=== PATIENT | female | born 1995 | race American Indian/Alaskan Native ===

== ENCOUNTER 2017-07-05 13:26 | Emergency (ER) | payer OTHER ==
[2017-07-05 14:42] LABS: Hematocrit 32.9 % (30.3-42.9); Hemoglobin 10.7 gm/dl (10.1-14.3); Mean Corpuscular HGB Conc 32 % (30-34); Mean Corpuscular Hemoglobin 29 pg (28-32); Mean Corpuscular Volume 88 fl (79-97); Platelet Count 192 K/mm3 (140-440); Red Blood Count 3.74 M/mm3 (3.65-5.03); Red Cell Distribution Width 14.8 % (13.2-15.2); White Blood Count 3.7 K/mm3 (4.5-11.0)
[2017-07-05 14:51] LABS: Bacteria,Urine 3+ /HPF (Negative); Bilirubin,Urine NEG (Negative); Blood,Urine NEG (Negative); Ketones,Urine NEG (Negative); Leukocyte Esterase,Urine NEG (Negative); Mucus,Urine FEW /HPF; Nitrite,Urine POS (Negative); Protein,Urine <15 mg/dL mg/dL (Negative)
[2017-07-05 14:55] LABS: Alanine Aminotransferase 40 units/L (7-56); Albumin 3.2 g/dL (3.9-5); Albumin/Globulin Ratio 1.3 %; Alkaline Phosphatase 93 units/L (35-129); Anion Gap 16 mmol/L; BUN/Creatinine Ratio 36.66; Blood Urea Nitrogen 11 mg/dL (7-17); Calcium 8.8 mg/dL (8.4-10.2); Carbon Dioxide 24 mmol/L (22-30); Chloride 106.4 mmol/L (98-107); Glucose 92 mg/dL (65-100); Potassium 3.4 mmol/L (3.6-5.0); Sodium 143 mmol/L (137-145); Total Protein 5.7 g/dL (6.3-8.2)
[2017-07-05 15:21] LABS: Lipase 21 units/L (13-60)
[2017-07-05 16:20] LABS: Basophils % (Manual) 0 % (0.0-1.8); Blastocytes % (Manual) 0 %
[2017-07-05 16:25] LABS: Anisocytosis 1+; Ovalocytes 1+
[2017-07-05 16:26] LABS: Elliptocytes Rare; Large Platelets 1+
[2017-07-05 16:27] LABS: Diff Status Complete; Platelet Estimate Consistent w Auto
[2017-07-06] MEDS ORDERED: TYLENOL PO ONE (01:18)
[2017-07-06] MEDS ORDERED: TYLENOL ONE (01:23)
[2017-07-06] MEDS ORDERED: MORPHINE IV ONE (08:53)
--- NOTE | 2017-07-06 09:03 | Emergency Department Report ---
HPI - General Chief Complaint: Abdominal Pain Time Seen by Provider: 07/06/17 08:34 - HPI HPI: This is a 22-year-old female presents to the emergency department from home with a complaint of a 4 day history of lower abdominal discomfort. She denies any nausea, vomiting, fever, back pain, dysuria. However for the past 2 days the patient has been having some vaginal discharge. Patient says that she has a history of some devious STD. She did not take anything for her symptoms progress presentation. She does not have a primary care physician but [facility]. She denies any other past medical history. No recent travel or sick contacts at home. ED Past Medical Hx - Past Medical History Previous Medical History?: Yes Additional medical history: N/V excessively, elevated heart rate - Surgical History Past Surgical History?: No - Social History Smoking Status: Current Every Day Smoker Substance Use Type: Marijuana - Medications Home Medications: Home Medications Medication Instructions Recorded Confirmed Last Taken Type Dicyclomine [Bentyl] 10 mg PO QID PRN #20 capsule 08/17/16 Unknown Rx Famotidine [Pepcid] 20 mg PO QDAY #20 tablet 08/17/16 Unknown Rx Ondansetron [Zofran Odt] 4 mg PO QID PRN #20 tab.rapdis 08/17/16 Unknown Rx Metoclopramide [Reglan TAB] 10 mg PO TID PRN #30 tab 12/24/16 Unknown Rx Ondansetron [Zofran Odt] 4 mg PO Q8HR PRN #30 tab.rapdis 12/24/16 Unknown Rx traMADol [Ultram 50 MG tab] 50 mg PO Q6HR PRN #8 tablet 07/06/17 Unknown Rx ED Review of Systems ROS: Stated complaint: ABDOMINAL PAIN Other details as noted in HPI Comment: All other systems reviewed and negative Constitutional: denies: chills, fever Eyes: denies: eye pain, eye discharge, vision change ENT: denies: ear pain, throat pain Respiratory: denies: cough, shortness of breath, wheezing Cardiovascular: denies: chest pain, palpitations Gastrointestinal: abdominal pain. denies: nausea, vomiting Genitourinary: discharge. denies: dysuria Musculoskeletal: denies: back pain, joint swelling, arthralgia Skin: denies: rash, lesions Neurological: denies: headache, weakness, paresthesias Physical Exam - Physical Exam Vital Signs: Vital Signs 07/05/17 07/05/17 07/06/17 13:30 20:06 08:20 Temperature 98.4 F 98.1 F 98.3 F Pulse Rate 103 H 103 H 97 H Respiratory 16 18 22 Rate Blood Pressure 135/69 139/65 Blood Pressure 122/77 [Right] O2 Sat by Pulse 97 100 100 Oximetry 07/06/17 08:28 Temperature Pulse Rate Respiratory 22 Rate Blood Pressure Blood Pressure [Right] O2 Sat by Pulse 100 Oximetry Physical Exam: GENERAL: The patient is well-developed well-nourished. HENT: Normocephalic. Atraumatic. Patient has moist mucous membranes. EYES: Extraocular motions are intact. Pupils equal reactive to light bilaterally. NECK: Supple. Trachea is midline. CHEST/LUNGS: Clear to auscultation. There is no respiratory distress noted. HEART/CARDIOVASCULAR: Regular. There is mild tachycardia. There is no gallop rub or murmur. ABDOMEN: Abdomen is soft. There is mild tenderness to palpation to the lower abdomen. No guarding or rebound tenderness. Patient has normal bowel sounds. There is no abdominal distention. SKIN: Skin is warm and dry. NEURO: The patient is awake, alert, and oriented. The patient is cooperative. The patient has no focal neurologic deficits. The patient has normal speech. MUSCULOSKELETAL: There is no tenderness or deformity. There is no limitation range of motion. There is no evidence of acute injury. : There is a small amount of thick white discharge seen in the vaginal vault. No obvious vaginal or labial lesions. ED Course Vital Signs 07/05/17 07/05/17 07/06/17 13:30 20:06 08:20 Temperature 98.4 F 98.1 F 98.3 F Pulse Rate 103 H 103 H 97 H Respiratory 16 18 22 Rate Blood Pressure 135/69 139/65 Blood Pressure 122/77 [Right] O2 Sat by Pulse 97 100 100 Oximetry 07/06/17 08:28 Temperature Pulse Rate Respiratory 22 Rate Blood Pressure Blood Pressure [Right] O2 Sat by Pulse 100 Oximetry ED Medical Decision Making - Lab Data Result diagrams: 07/05/17 14:09 07/05/17 14:09 - Radiology Data Radiology results: report reviewed CT SCAN OF THE ABDOMEN AND PELVIS WITH CONTRAST: HISTORY: Abdominal pain. TECHNIQUE: Helical CT in 1.25mm intervals following IV contrast. Sagittal and coronal reconstructions. FINDINGS: The liver is normal in size and is without focal defect. No gallstones or biliary dilatation are noted. Mild periportal edema is suggested. The spleen and pancreas demonstrate a normal size and attenuation with no evidence of abnormal mass. The kidneys are normal in size and position with no evidence of hydronephrosis or mass. The adrenal glands are normal. There is no intestinal obstruction or ascites. Normal appendix. The abdominal aorta is normal. A right ovarian cyst is suspected measuring 2.5 cm. The left ovary is unremarkable. There is small pelvic ascites. There is no evidence of any abnormal masses or fluid collections within the pelvis. No adenopathy is identified. The bladder is normal. IMPRESSION: 2.5 cm right ovarian cyst. Small pelvic ascites. No acute inflammatory process is appreciated. - Medical Decision Making 22-year-old female presents to the emergency department with some lower abdominal pain and more recently some vaginal discharge. Wet prep did not show any signs of DVT or trichomoniasis. Gonorrhea and chlamydia sent but will not result for 2-[address] of the abdomen and pelvis shows a ovarian cyst. Labs are grossly unremarkable. No urinary tract infection and the patient is not . Vital signs stable including being afebrile. She will follow up with primary care and [facility] will return to the ER with any worsening of her symptoms or any acute distress. - Differential Diagnosis colitis, diverticulitis, , UTI, fibroids, STD Critical Care Time: No Critical care attestation.: If time is entered above; I have spent that time in minutes in the direct care of this critically ill patient, excluding procedure time. ED Disposition Clinical Impression: Abdominal pain Qualifiers: Abdominal location: lower abdomen, unspecified Qualified Code(s): R10.30 - Lower abdominal pain, unspecified Ovarian cyst Qualifiers: Laterality: right Qualified Code(s): N83.201 - Unspecified ovarian cyst, right side Disposition: TO HOME OR SELFCARE Is pt being admited?: No Condition: Stable Instructions: Ovarian Cyst (ED), Abdominal Pain (ED) Additional Instructions: Please follow up with a primary care doctor in the next few days. Please follow -up with your [facility]. Return to the emergency Department with any worsening of your symptoms or any acute distress. You have been prescribed a medication that is sedating and therefore should not be taken prior to driving, working, and responsible for children and in no way should be mixed with alcohol of any quantity. Prescriptions: traMADol [Ultram 50 MG tab] 50 mg PO Q6HR PRN #8 tablet PRN Reason: Pain Referrals: PRIMARY CARE, [Primary Care Provider] - 3-5 Days Time of Disposition: 11:50
[2017-07-06] MEDS ORDERED: NACL ONE (09:13)
--- NOTE | 2017-07-06 10:28 | Cat Scan Report ---
CT SCAN OF THE ABDOMEN AND PELVIS WITH CONTRAST: HISTORY: Abdominal pain. TECHNIQUE: Helical CT in 1.25mm intervals following IV contrast. Sagittal and coronal reconstructions. FINDINGS: The liver is normal in size and is without focal defect. No gallstones or biliary dilatation are noted. Mild periportal edema is suggested. The spleen and pancreas demonstrate a normal size and attenuation with no evidence of abnormal mass. The kidneys are normal in size and position with no evidence of hydronephrosis or mass. The adrenal glands are normal. There is no intestinal obstruction or ascites. Normal appendix. The abdominal aorta is normal. A right ovarian cyst is suspected measuring 2.5 cm. The left ovary is unremarkable. There is small pelvic ascites. There is no evidence of any abnormal masses or fluid collections within the pelvis. No adenopathy is identified. The bladder is normal. IMPRESSION: 2.5 cm right ovarian cyst. Small pelvic ascites. No acute inflammatory process is appreciated.
[2017-07-06] MEDS ORDERED: NACL 0.9% 500 ML 500 ML IV ONE (11:26)
[2017-07-06] MEDS ORDERED: MORPHINE ONE ×2 (11:39→11:42)
[2017-07-06 12:23] VITALS: BP 126/58
== END 2017-07-06 12:30 | disposition home or self-care (01) ==
LOC: ED 13:26
DX: R10.30 Lower abdominal pain, unspecified (principal); N83.201 Unspecified ovarian cyst, right side; F12.10 Cannabis abuse, uncomplicated; F17.200 Nicotine dependence, unspecified, uncomplicated
CPT/HCPCS: 36415; 74177; 80053; 81001; 81025; 83690; 85007; 85025; 87210; 87591; 96374; 99285; J2270; J7040; Q9967

== ENCOUNTER 2020-09-18 06:14 | Emergency (ER) | payer SELFPAY ==
[2020-09-18 06:30] VITALS: BP 121/67
[2020-09-18] MEDS ORDERED: DIPHtheria,PERTUSSIS(ACELL),TETANUS VACCINE/PF 0.5 ML VIAL IM ONE (08:11)
--- NOTE | 2020-09-18 09:01 | XRay Report ---
LEFT ELBOW 3 VIEWS INDICATION: left elbow pain with lac. COMPARISON: No relevant prior imaging study available. FINDINGS: There is a laceration injury along the posterior aspect of the elbow superficial to the olecranon. No foreign bodies. No fracture, dislocation, or joint effusion. IMPRESSION: 1. Superficial posterior laceration. No acute skeletal abnormality. Signer Name: Osmany Viveros MD Signed: 09/18/2020 8:56 AM Workstation Name: [id number]
--- NOTE | 2020-09-18 10:01 | Emergency Department Report ---
ED Laceration HPI - HPI Chief Complaint: Wound/Laceration Stated Complaint: LAC LF ELBOW Time Seen by Provider: 09/18/20 08:04 Occurred When: Before Yesterday (4 days) Location: Upper Extremity Severity: mild Tetanus Status: Not up to Date Laceration Symptoms: Yes Pain, No Foreign Body Sensation, No Numbness, No Weakness Other History: This is a 25-year-old female nontoxic, well nourished in appearance, no acute signs of distress presents to the ED with c/o of left elbow laceration x 4 days ago. Stated cut herself accidently on glass. Patient denies decreased sensation or range of motion. Patient stated bleeding is under control. Denies any numbness, tingling, fever, chills, nausea, vomiting, chest pain, shortness of breath, headache or stiff neck. Patient denies any allergies to significant past medical history. Patient is that she is not up-to-date with tetanus. ED Review of Systems ROS: Stated complaint: LAC LF ELBOW Other details as noted in HPI Constitutional: denies: chills, fever Eyes: denies: eye pain, eye discharge, vision change ENT: denies: ear pain, throat pain Respiratory: denies: cough, shortness of breath, wheezing Cardiovascular: denies: chest pain, palpitations Endocrine: no symptoms reported Gastrointestinal: denies: abdominal pain, nausea, diarrhea Genitourinary: denies: urgency, dysuria, discharge Musculoskeletal: denies: back pain, joint swelling, arthralgia Skin: denies: rash, lesions Neurological: denies: headache, weakness, paresthesias Psychiatric: denies: anxiety, depression Hematological/Lymphatic: denies: easy bleeding, easy bruising ED Past Medical Hx - Past Medical History Additional medical history: N/V excessively, elevated heart rate - Social History Smoking Status: Current Every Day Smoker Substance Use Type: Marijuana - Medications Home Medications: Home Medications Medication Instructions Recorded Confirmed Last Taken Type Dicyclomine [Bentyl] 10 mg PO QID PRN #20 capsule 08/17/16 Unknown Rx Famotidine [Pepcid] 20 mg PO QDAY #20 tablet 08/17/16 Unknown Rx Ondansetron [Zofran Odt] 4 mg PO QID PRN #20 tab.rapdis 08/17/16 Unknown Rx Metoclopramide [Reglan TAB] 10 mg PO TID PRN #30 tab 12/24/16 Unknown Rx Ondansetron [Zofran Odt] 4 mg PO Q8HR PRN #30 tab.rapdis 12/24/16 Unknown Rx traMADoL [Ultram 50 MG tab] 50 mg PO Q6HR PRN #8 tablet 07/06/17 Unknown Rx Sulfamethoxazole/Trimethoprim 1 each PO BID #14 tablet 09/18/20 Unknown Rx [Bactrim DS TAB] Laceration Physical Exam - Exam General: Vital signs noted. No distress. Alert and acting appropriately. Wound Length (cm): 3 Laceration Location: Upper Extremity Laceration Exam: Yes Normal Distal CMS, No Foreign Body, No Exposed Tendon, Vessel, or Nerve, No Tendon Injury ED Course Vital Signs 09/18/20 06:28 Temperature 98 F Pulse Rate 72 Respiratory 16 Rate Blood Pressure 121/67 [Left] O2 Sat by Pulse 99 Oximetry - Reevaluation(s) Reevaluation #1: 09/18/20 09:59 Patient is speaking in full sentences with no signs of distress noted. - Laceration /Wound Repair Left Elbow Wound Location: upper extremity Wound Length (cm): 3 Wound's Depth, Shape: superficial Wound Explored: clean Irrigated w/ Saline (ccs): 40 Betadine Prep?: Yes Volume Anesthetic (ccs): 3 (2% lidocaine plain) Wound Debrided: minimal Wound Repaired With: sutures Suture Size/Type: 4:0, proline Number of Sutures: 3 Layer Closure?: No Sterile Dressing Applied?: Yes Progress: Under sterile field, I used Betadine to clean the area. I then used 40 mL of normal saline to flush the area. I then used 2% lidocaine plain and injected 3 mL to the wound. I then used a 4-0 Prolene to suture the laceration. Number of stitches 3 very loosely. I then applied a sterile 4 x 4 with tape. Minimal bleeding noted but is under control. Patient tolerated procedure well with no signs of distress. ED Medical Decision Making - Radiology Data Referring Physician: SAMMIE FLORES Patient Name: GRICELDA BERGER Date of : 1995 Sex: Female Report Date: 2020-09-18 Report Status: Finalized [facility] [address] [id number] XRay Report Signed Patient: GRICELDA BERGER MR#: [id number] : 1995 Acct:[id number] Age/Sex: 25 / F ADM Date: 09/18/20 Loc: ED Attending Dr: Ordering Physician: SAMMIE FLORES NP Date of Service: 09/18/20 Procedure(s): XR elbow 3+V LT Accession Number(s): [id number] cc: SAMMIE FLORES NP Fluoro Time In Minutes: LEFT ELBOW 3 VIEWS INDICATION: left elbow pain with lac. COMPARISON: No relevant prior imaging study available. FINDINGS: There is a laceration injury along the posterior aspect of the elbow superficial to the olecranon. No foreign bodies. No fracture, dislocation, or joint effusion. IMPRESSION: 1. Superficial posterior laceration. No acute skeletal abnormality. Signer Name: Osmany Viveros MD Signed: 09/18/2020 8:56 AM Workstation Name: [id number] Transcribed By: Dictated By: Osmany Viveros MD Electronically Authenticated By: Osmany Viveros MD Signed Date/Time: 09/18/20855 DD/ 5 TD/TT: - Medical Decision Making This is a 25-year-old female that presents with laceration. Patient is stable and was examined by me. The laceration suturing has been performed loosely and has been performed and patient tolerated well. A sterile dressing has been applied. Patient was educated on proper wound care. Patient is discharged with Bactrim. Patient was instructed to return in 10 days for suture removal. Patient was instructed to refer to Follow-up with a primary care doctor in 3-5 days or if symptoms worsen and continue return to emergency room as soon as possible. At time of discharge, the patient does not seem toxic or ill in appearance. No acute signs of distress noted. Patient agrees to discharge treatment plan of care. No further questions noted by the patient. Critical care attestation.: If time is entered above; I have spent that time in minutes in the direct care of this critically ill patient, excluding procedure time. ED Disposition Clinical Impression: Laceration Disposition: DC-01 TO HOME OR SELFCARE Is pt being admited?: No Does the pt Need Aspirin: No Condition: Stable Instructions: Laceration Care, Adult, [id number] Additional Instructions: Follow-up with a primary care doctor in 3-5 days or if symptoms worsen and continue return to emergency room as soon as possible. Return in 10 days for suture removal. Prescriptions: Sulfamethoxazole/Trimethoprim [Bactrim DS TAB] 1 each PO BID #14 tablet Referrals: PRIMARY MD CLARIBEL [Primary Care Provider] - 3-5 Days FRANKLIN NGO MD [Staff Physician] - 3-5 Days Time of Disposition: 10:06
== END 2020-09-18 11:07 | disposition home or self-care (01) ==
LOC: ED 06:14
DX: S51.012A Laceration without foreign body of left elbow, initial encounter (principal); F17.200 Nicotine dependence, unspecified, uncomplicated; F12.90 Cannabis use, unspecified, uncomplicated; Z79.899 Other long term (current) drug therapy; W25.XXXA Contact with sharp glass, initial encounter; Y93.89 Activity, other specified; Y92.89 Other specified places as the place of occurrence of the external cause; Y99.8 Other external cause status
CPT/HCPCS: 90471; 90715

== ENCOUNTER 2020-10-01 11:35 | Emergency (ER) | payer SELFPAY ==
[2020-10-01 11:45] VITALS: BP 127/82
--- NOTE | 2020-10-01 11:58 | Emergency Department Report ---
Suture/Staple Removal - HPI Chief Complaint: Laceration/Recheck/Suture Stated Complaint: REMOVAL OF STITCHES Time Seen by Provider: 10/01/20 11:51 When Sutures or Ke Placed: 11-14 Days Ago ED Review of Systems ROS: Stated complaint: REMOVAL OF STITCHES Other details as noted in HPI Comment: All other systems reviewed and negative ED Past Medical Hx - Past Medical History Previous Medical History?: Yes Additional medical history: N/V excessively, elevated heart rate, left elbow lac - Surgical History Past Surgical History?: No - Social History Smoking Status: Current Every Day Smoker Substance Use Type: Alcohol, Marijuana - Medications Home Medications: Home Medications Medication Instructions Recorded Confirmed Last Taken Type Dicyclomine [Bentyl] 10 mg PO QID PRN #20 capsule 08/17/16 Unknown Rx Famotidine [Pepcid] 20 mg PO QDAY #20 tablet 08/17/16 Unknown Rx Ondansetron [Zofran Odt] 4 mg PO QID PRN #20 tab.rapdis 08/17/16 Unknown Rx Metoclopramide [Reglan TAB] 10 mg PO TID PRN #30 tab 12/24/16 Unknown Rx Ondansetron [Zofran Odt] 4 mg PO Q8HR PRN #30 tab.rapdis 12/24/16 Unknown Rx traMADoL [Ultram 50 MG tab] 50 mg PO Q6HR PRN #8 tablet 07/06/17 Unknown Rx Sulfamethoxazole/Trimethoprim 1 each PO BID #14 tablet 09/18/20 Unknown Rx [Bactrim DS TAB] Suture Removal Exam - Exam General: Vital signs noted. No distress. Alert and acting appropriately. Wound: No Pathologic Erythema, No Tenderness, No Drainage, No Pus, No Wound Dehiscence Other Systems: All other systems reviewed and are unremarkable. ED Course Vital Signs 10/01/20 11:44 Temperature 98.5 F Pulse Rate 61 Respiratory 14 Rate Blood Pressure 127/82 O2 Sat by Pulse 97 Oximetry Critical care attestation.: If time is entered above; I have spent that time in minutes in the direct care of this critically ill patient, excluding procedure time. ED Disposition Clinical Impression: Visit for suture removal Disposition: DC- TO HOME OR SELFCARE Is pt being admited?: No Does the pt Need Aspirin: No Condition: Stable
== END 2020-10-01 12:11 | disposition home or self-care (01) ==
LOC: ED 11:35
DX: S51.012D Laceration without foreign body of left elbow, subsequent encounter (principal); F17.200 Nicotine dependence, unspecified, uncomplicated; F12.90 Cannabis use, unspecified, uncomplicated; Z79.899 Other long term (current) drug therapy; X58.XXXD Exposure to other specified factors, subsequent encounter